=== PATIENT | male | born 1960 | race Caucasian/White ===

== ENCOUNTER 2018-07-15 14:49 | Observation (INO) ==
[2018-07-15] MEDS ORDERED: 0.9 % Sodium Chloride 1,000 ML IVC ONE ×2 (14:53→15:04)
--- NOTE | 2018-07-15 14:53 | Emergency Department Note ---
Disposition Clinical Impression: UTI (urinary tract infection), Dehydration, Orthostatic hypotension Disposition: Admitted As Inpatient Condition: Fair Time of Disposition: 16:43 Weakness HPI - General Chief complaint: ED Weakness Stated complaint: dehydration,weakness Time Seen by Provider: 07/15/18 14:52 Source: patient Mode of arrival: ambulatory Limitations: no limitations Nursing Notes Reviewed: Yes Vital Signs Reviewed: Yes - History of Present Illness HPI Narrative: 58-year-old gentleman who presents today with his daughter complaining of weakness generally. He has for the last 2-3 weeks had a decreased intake. They state that they start Celexa and Remeron about that time. They state that this murmur on scene to make his legs swell CVA stopped that but continue the Celexa. He is continuing to have decreased oral intake. Family is concerned that he may have lost 20 pounds in last couple weeks. He describes pain in his rectum from the reversal of his colostomy but no other pain or nausea. Pt Subjective Complaint: generalized weakness/fatigue - Related Data Home Medications Medication Instructions Recorded Confirmed Pravastatin Sodium [Pravachol] 20 mg PO HS 11/27/14 06/25/18 Fluticasone Propionate [Flovent 2 puff IH BID 08/09/15 06/25/18 Diskus] Ferrous Sulfate [Iron] 325 mg PO BID 08/22/16 06/25/18 Clopidogrel [Plavix] 75 mg PO DAILY 02/21/17 06/25/18 Tamsulosin [Flomax] 0.4 mg PO BID 12/04/17 06/25/18 Citalopram [CeleXA] 20 mg PO HS 06/06/18 06/25/18 Cyanocobalamin (B-12) [Vitamin B12] 1,000 mcg PO DAILY 06/25/18 06/25/18 LORazepam [Ativan] 1 mg PO DAILY 06/25/18 06/25/18 Previous Rx's Medication Instructions Recorded Rivaroxaban [Xarelto] 15 mg PO DAILY #90 tablet 08/31/17 Folic Acid 1 mg PO DAILY #90 tablet 10/27/17 Gabapentin [Neurontin] 300 mg PO TID #90 capsule 11/07/17 Cholecalciferol (Vitamin D3) 1,000 unit PO DAILY #30 capsule 11/23/17 [Vitamin D3] Oxycodone HCl/Acetaminophen 1 each PO Q6H PRN 30 Days #120 01/23/18 [Percocet 5-325 mg Tablet] tablet Loperamide [Imodium] 2 cap PO AD #60 capsule 07/13/18 Allergies Allergy/AdvReac Type Severity Reaction Status Date / Time No Known Allergies Allergy Verified 06/25/18 12:57 Review of Systems: All other systems are negative except as noted/marked Chart generated with voice recognition software Nursing notes reviewed Old records reviewed Past Medical History - Past Medical History Attestation: Yes The following information was validated with the patient. Source: patient, old records reviewed, nursing notes reviewed Medical history: Reports: asthma, cancer, COPD, coronary artery disease, hyperlipidemia, hypertension, peripheral artery disease, other Surgical history: Reports: colectomy, colostomy Psychiatric history: Reports: anxiety, depression - Social History Smoking Status: Current every day smoker Smokeless Tobacco Status: No Alcohol use: Reports: occasionally (heavy EtOh use for years, 6-8 beers daily) Drug use: Reports: none Physical Exam General: NAD, VSS Head: normocephalic, atraumatic Eyes: EOMI, PERRLA mouth: moist mucous membranes Neck: NO CLA, Supple Chest wall: normal rise, no crepitus, no deformity noted Lungs: moving air well, no distress Heart: RRR, Abd: soft, nontender, BS normal : deferred MSK: strength equal in all four extremities Ext: moves all four extremities, no obvious deformities Skin: cap refill normal, warm, dry neuro : CN2-12 grossly intact, A&Ox3 Psych: normal affect, not anxious Course Vital Signs Temperature 98.4 F 07/15/18 14:52 Pulse Rate 90 07/15/18 14:52 Respiratory Rate 18 07/15/18 14:52 Blood Pressure 116/70 07/15/18 14:52 O2 Sat by Pulse Oximetry 97 07/15/18 14:52 Temperature 98.4 F 07/15/18 14:52 Pulse Rate 91 07/15/18 17:00 Respiratory Rate 18 07/15/18 16:30 Blood Pressure 95/63 07/15/18 17:00 O2 Sat by Pulse Oximetry 98 07/15/18 16:30 Oxygen Delivery Oxygen Delivery Room Air Weakness - MDM Narrative Medical decision making narrative: 58-year-old gentleman who presents today with orthostatic with a UTI. He is feeling better after IV fluids however I think he needs to monitored overnight as he was quite symptomatically stood. Patient is comfortable with staying. It becomes Rocephin for his UTI. I spoke with Dr. Gomez he agreed to accept the patient to the floor. repeat orthostatics still positive. - Medical Records Medical records reviewed: Yes I reviewed the patient's medical records. - Lab Data Lab results reviewed: Yes I reviewed the patient's lab results. Result diagrams: 07/15/18 15:08 07/15/18 15:08 Lab Results 07/15/18 07/15/18 07/15/18 Range/Units 15:08 15:08 15:08 WBC 5.0 (4.3-11.1) K/mcL RBC 4.02 L (4.19-5.50) M/mcL Hgb 13.3 (12.9-16.9) g/dL Hct 39.3 (37.5-50.1) % MCV 97.8 (83.0-100.0) fL MCH 33.1 (28.0-33.3) pg MCHC 33.8 (31.6-35.5) g/dL RDW 15.3 H (11.5-14.5) % Plt Count 242 (140-400) K/mcL MPV 9.6 (9.4-12.4) fL Immature Gran % 0.4 (0-4) % Seg Neutrophils % 72.3 % Lymphocytes % 13.9 % Monocytes % 11.6 % Eosinophils % 1.4 % Basophils % 0.4 % Neutrophils # 3.6 (1.6-8.9) K/mcL Lymphocytes # 0.7 (0.6-4.6) K/mcL Monocytes # 0.6 (0.0-1.3) K/mcL Eosinophils # 0.1 (0.0-0.6) K/mcL Basophils # 0.0 (0.0-0.2) K/mcL Sodium 136 (136-145) mEq/L Potassium 3.5 (3.5-5.1) mEq/L Chloride 103 (98-107) mEq/L Carbon Dioxide 27 (23-29) mEq/L BUN 10 (6-20) mg/dL Creatinine 0.84 (0.70-1.30) mg/dL Est GFR ( Amer) > 60 (> 60) Est GFR (Non-Af Amer) > 60 (> 60) BUN/Creatinine Ratio 12 (6-26) Glucose 112 H (70-105) mg/dL Calculated Osmolality 282 (280-300) Lactic Acid 1.7 (0.5-2.2) mmol/L Calcium 8.6 (8.6-10.3) mg/dL Magnesium 1.8 (1.6-2.6) mg/dL Troponin I < 0.03 (< 0.04) ng/mL Urine Color (Yellow) Urine Clarity (Clear) Urine pH (5.0-8.0) pH Units Ur Specific [place] (1.010-1.025) Urine Protein (Neg-Trace) mg/dL Urine Glucose (UA) (Normal) mg/dL Urine Ketones (Negative) mg/dL Urine Blood (Negative) Urine Nitrite (Negative) Urine Bilirubin (Negative) Urine Urobilinogen (Normal) mg/dL Ur Leukocyte Esterase (Negative) Urine Microscopic RBC (0-3) per hpf Urine Microscopic WBC (0-3) per hpf Ur Squamous Epith Cells (None-Few) per lpf Urine Bacteria (None-Few) per hpf Urine Mucus (Few) Ur Culture Indicated? (NO) 07/15/18 Range/Units 16:13 WBC (4.3-11.1) K/mcL RBC (4.19-5.50) M/mcL Hgb (12.9-16.9) g/dL Hct (37.5-50.1) % MCV (83.0-100.0) fL MCH (28.0-33.3) pg MCHC (31.6-35.5) g/dL RDW (11.5-14.5) % Plt Count (140-400) K/mcL MPV (9.4-12.4) fL Immature Gran % (0-4) % Seg Neutrophils % % Lymphocytes % % Monocytes % % Eosinophils % % Basophils % % Neutrophils # (1.6-8.9) K/mcL Lymphocytes # (0.6-4.6) K/mcL Monocytes # (0.0-1.3) K/mcL Eosinophils # (0.0-0.6) K/mcL Basophils # (0.0-0.2) K/mcL Sodium (136-145) mEq/L Potassium (3.5-5.1) mEq/L Chloride (98-107) mEq/L Carbon Dioxide (23-29) mEq/L BUN (6-20) mg/dL Creatinine (0.70-1.30) mg/dL Est GFR ( Amer) (> 60) Est GFR (Non-Af Amer) (> 60) BUN/Creatinine Ratio (6-26) Glucose (70-105) mg/dL Calculated Osmolality (280-300) Lactic Acid (0.5-2.2) mmol/L Calcium (8.6-10.3) mg/dL Magnesium (1.6-2.6) mg/dL Troponin I (< 0.04) ng/mL Urine Color Yellow (Yellow) Urine Clarity Cloudy A (Clear) Urine pH 5.5 (5.0-8.0) pH Units Ur Specific [place] 1.020 (1.010-1.025) Urine Protein 30 H (Neg-Trace) mg/dL Urine Glucose (UA) Normal (Normal) mg/dL Urine Ketones Trace H (Negative) mg/dL Urine Blood Moderate H (Negative) Urine Nitrite Positive A (Negative) Urine Bilirubin Negative (Negative) Urine Urobilinogen Normal (Normal) mg/dL Ur Leukocyte Esterase Moderate H (Negative) Urine Microscopic RBC 5-15 H (0-3) per hpf Urine Microscopic WBC TNTC H (0-3) per hpf Ur Squamous Epith Cells Few (None-Few) per lpf Urine Bacteria Many H (None-Few) per hpf Urine Mucus Few (Few) Ur Culture Indicated? YES A (NO) - Radiology Data Radiology results reviewed: Yes I reviewed the patient's radiology results. EXAMINATION: CT OF THE HEAD WITHOUT CONTRAST; CT OF THE CERVICAL SPINE WITHOUT CONTRAST 07/15/2018 4:02 pm; 07/15/2018 4:00 pm TECHNIQUE: CT of the head was performed without the administration of intravenous contrast. Dose modulation, iterative reconstruction, and/or weight based adjustment of the mA/kV was utilized to reduce the radiation dose to as low as reasonably achievable.; CT of the cervical spine was performed without the administration of intravenous contrast. Multiplanar reformatted images are provided for review. Dose modulation, iterative reconstruction, and/or weight based adjustment of the mA/kV was utilized to reduce the radiation dose to as low as reasonably achievable. COMPARISON: None. HISTORY: ORDERING SYSTEM PROVIDED HISTORY: fall, chi FINDINGS: CT head: BRAIN/VENTRICLES: There is no acute intracranial hemorrhage, mass effect or midline shift. No abnormal extra-axial fluid collection. The zacarias-white differentiation is maintained without evidence of an acute infarct. There is no evidence of hydrocephalus. Mild chronic white matter microvascular ischemic changes are characterized by periventricular white matter hypodensity. ORBITS: The visualized portion of the orbits demonstrate no acute abnormality. SINUSES: The visualized paranasal sinuses and mastoid air cells demonstrate no acute abnormality. SOFT TISSUES/SKULL: No acute abnormality of the visualized skull or soft tissues. CT cervical spine: No fracture or traumatic subluxation is identified. Degenerative changes of the spine are noted, worst at C5-C6 where there is moderate right and moderate to severe left-sided osseous neural foraminal stenosis. 2 mm anterolisthesis of C4 on C5 is likely degenerative in origin. There is an incidentally noted 15 mm subcutaneous fluid collection along the posterior aspect of the neck on image number 49 of the sagittal series, likely a sebaceous cyst CT/CT head/brain wo con IMPRESSION: No acute intracranial abnormality. No cervical fracture detected. Incidental findings as detailed above. D/ / Zac Silva MD / Zac Silva MD Interpreting Provider: Zac Silva MD INATION: SINGLE XRAY VIEW OF THE CHEST 07/15/2018 4:02 pm COMPARISON: 06/19/2013 HISTORY: ORDERING SYSTEM PROVIDED HISTORY: weakness Acute weakness, dehydration. FINDINGS: Study limited by overlying support and monitoring apparatus. Lungs are hyperexpanded with emphysematous changes again noted with an upper lung zone predominance. The heart and mediastinal contours are stable. The lungs are grossly clear. Osseous structures are unremarkable. XR/XR chest 1V portable IMPRESSION: Hyperexpansion of the lungs, emphysema. No focal consolidation. D/ / 07/15/2018 16:09:25 Gabriel Almanza MD / [facility] Interpreting Provider: Gabriel Almanza MD - EKG Data EKG attestation: Yes I reviewed and interpreted this EKG. EKG results narrative: EKG interpreted by myself as a sinus rhythm with rate 94 QTc of [address] elevation
[2018-07-15 15:17] LABS: Basophils % 0.4 %; Eosinophils # 0.1 K/mcL (0.0-0.6); Eosinophils % 1.4 %; Hematocrit 39.3 % (37.5-50.1); Hemoglobin 13.3 g/dL (12.9-16.9); Immature Granulocytes % 0.4 % (0-4); Lymphocytes # 0.7 K/mcL (0.6-4.6); Lymphocytes % 13.9 %; Mean Corpuscular HGB Conc 33.8 g/dL (31.6-35.5); Mean Corpuscular Hemoglobin 33.1 pg (28.0-33.3); Mean Corpuscular Volume 97.8 fL (83.0-100.0); Mean Platelet Volume 9.6 fL (9.4-12.4); Monocytes # 0.6 K/mcL (0.0-1.3); Monocytes % 11.6 %; Neutrophils # 3.6 K/mcL (1.6-8.9); Platelet Count 242 K/mcL (140-400); Red Blood Count 4.02 M/mcL (4.19-5.50); Red Cell Distribution Width 15.3 % (11.5-14.5); Segmented Neutrophils % 72.3 %
[2018-07-15 15:38] LABS: BUN/Creatinine Ratio 12 (6-26); Blood Urea Nitrogen 10 mg/dL (6-20); Calcium 8.6 mg/dL (8.6-10.3); Carbon Dioxide 27 mEq/L (23-29); Chloride 103 mEq/L (98-107); Glucose 112 mg/dL (70-105); Magnesium 1.8 mg/dL (1.6-2.6); Osmolality,Calculated 282 (280-300); Potassium 3.5 mEq/L (3.5-5.1); Sodium 136 mEq/L (136-145); eGFR For Non-African Americans > 60 (> 60)
[2018-07-15 15:39] LABS: Troponin I < 0.03 ng/mL (< 0.04)
[2018-07-15 16:21] LABS: Bilirubin,Urine Negative (Negative); Blood,Urine Moderate (Negative); Clarity,Urine Cloudy (Clear); Color,Urine Yellow (Yellow); Glucose,Urine (UA) Normal (Normal); Ketones,Urine Trace mg/dL (Negative); Leukocyte Esterase,Urine Moderate (Negative); Nitrite,Urine Positive (Negative); PH,Urine 5.5 pH Units (5.0-8.0); Protein,Urine 30 mg/dL (Neg-Trace); Urobilinogen,Urine Normal (Normal)
[2018-07-15] MEDS ORDERED: cefTRIAXone 1,000 MG in Water for inj. (sterile) 20 ML 10 ML IVP ONE (16:35)
[2018-07-15 16:41] LABS: Bacteria,Urine Many per hpf (None-Few); Squamous Epithelial Cell,Urine Few per lpf (None-Few); WBC,Urine TNTC per hpf (0-3)
[2018-07-15 16:42] LABS: Mucus,Urine Few (Few)
[2018-07-15] MEDS ORDERED: Naloxone 0.4 MG/ML INJ IVP PRN ×2 (17:28)
[2018-07-15] MEDS ORDERED: *HR* Morphine 2 MG/ML SYRINGE IVP PRN (17:28)
[2018-07-15] MEDS ORDERED: Acetaminophen 325 MG TABLET PO PRN (17:28)
[2018-07-15] MEDS ORDERED: MOM Conc 10 ML UD.LIQ PO PRN (17:28)
[2018-07-15] MEDS ORDERED: Ondansetron 4 MG/2 ML VIAL IVP PRN (17:28)
[2018-07-15] MEDS ORDERED: Mag Hydrox/Al Hydrox/Simeth 30 ML UDC PO PRN (17:28)
[2018-07-15] MEDS: 0.9 % Sodium Chloride 1,000 ML IVC SCH (18:45)
[2018-07-15] MEDS: Gabapentin 300 MG CAPSULE PO SCH (20:55)
[2018-07-15] MEDS: MOMETASONE FUROATE 100 mcg Inhaler IH SCH (21:49)
[2018-07-16] MEDS: 0.9 % Sodium Chloride 1,000 ML IVC SCH (02:39)
[2018-07-16 06:52] LABS: Basophils % 0.5 %; Eosinophils # 0.1 K/mcL (0.0-0.6); Eosinophils % 1.3 %; Hematocrit 34.7 % (37.5-50.1); Hemoglobin 11.2 g/dL (12.9-16.9); Immature Granulocytes % 0.3 % (0-4); Lymphocytes # 0.5 K/mcL (0.6-4.6); Lymphocytes % 13.6 %; Mean Corpuscular HGB Conc 32.3 g/dL (31.6-35.5); Mean Corpuscular Hemoglobin 32.3 pg (28.0-33.3); Mean Platelet Volume 10.2 fL (9.4-12.4); Monocytes # 0.4 K/mcL (0.0-1.3); Monocytes % 9.6 %; Platelet Count 206 K/mcL (140-400); Red Blood Count 3.47 M/mcL (4.19-5.50); Red Cell Distribution Width 15.3 % (11.5-14.5); Segmented Neutrophils % 74.7 %
[2018-07-16 07:17] LABS: BUN/Creatinine Ratio 12 (6-26); Blood Urea Nitrogen 7 mg/dL (6-20); Calcium 7.6 mg/dL (8.6-10.3); Carbon Dioxide 24 mEq/L (23-29); Chloride 106 mEq/L (98-107); Glucose 84 mg/dL (70-105); Magnesium 1.6 mg/dL (1.6-2.6); Osmolality,Calculated 281 (280-300); Potassium 3.4 mEq/L (3.5-5.1); Sodium 137 mEq/L (136-145); eGFR For Non-African Americans > 60 (> 60)
[2018-07-16] MEDS: *HR* LORazepam 1 MG TABLET PO SCH (08:46)
[2018-07-16] MEDS: *HR* Rivaroxaban 15 MG TABLET PO SCH (08:46)
[2018-07-16] MEDS: Gabapentin 300 MG CAPSULE PO SCH ×3 (08:46→20:37)
[2018-07-16] MEDS: MOMETASONE FUROATE 100 mcg Inhaler IH SCH ×2 (10:13→21:43)
--- NOTE | 2018-07-16 14:59 | Internal Med History&Physical ---
Date of Encounter: 07/16/18 Time of Encounter: 14:15 Assessment and Plan (1) UTI (urinary tract infection) Current visit: Yes Status: Acute He has been started empirically on Rocephin IV. Lactobacillus will be added. Qualifiers: Urinary tract infection type: site unspecified Hematuria presence: with hematuria Qualified Code(s): N39.0 - Urinary tract infection, site not specified; R31.9 - Hematuria, unspecified (2) Hypokalemia Current visit: Yes Status: Acute Potassium level has decreased to 3.4. Supplemental potassium will be given. (3) Hypocalcemia Current visit: Yes Status: Acute Calcium level has decreased to 7.6. Repeat labs will be done in a.m. PTH has been ordered. (4) COPD (chronic obstructive pulmonary disease) Current visit: Yes Status: Chronic Room air oximetry will be checked on 6 minute walk prior to discharge. Qualifiers: COPD type: unspecified COPD Qualified Code(s): J44.9 - Chronic obstructive pulmonary disease, unspecified (5) Dvt femoral (deep venous thrombosis) Current visit: No Status: Chronic Continue Xarelto indefinitely. Qualifiers: Chronicity: unspecified Laterality: bilateral Qualified Code(s): I82.413 - Acute embolism and thrombosis of femoral vein, bilateral (6) Anemia Current visit: No Status: Acute Anemia testing will be ordered. Qualifiers: Anemia type: unspecified type Qualified Code(s): D64.9 - Anemia, unspecified (7) Weakness Current visit: Yes Status: Acute Reassess in a.m. He may need PT and OT evaluations. Internal Medicine - H&P: HPI Chief complaint: Weakness, UTI Admitted From: Emergency Dept Plans for Post Hospital Care: Home History of present illness: Mr. Du is a 58 year old male came to emergency room stating he had 3-4 week history of progressive weakness in his arms and legs. He reports falling without injury at home on 2 occasions last week. He was evaluated in emergency room and was found to have UTI. He was admitted to [facility] floor for ongoing care needs. history is pertinent for having bilateral hydronephrosis with bladder biopsy, bladder wall fulguration, bilateral retrograde pyelograms, and bilateral diagnostic ureteroscopy on 06/25/[address] Pa. Pathology report did not show evidence of malignancy. He denies other disorders of his kidney bladder or prostate. Past Med Surg Social Fam HX - Past Medical History Medical history: asthma, cancer, COPD, coronary artery disease, hyperlipidemia, hypertension, peripheral artery disease, other Additional medical history: colon cancer,allergi rhinitis,vitamin D deficiency, Psychiatric history: anxiety, depression - Past Surgical History Surgical History: colectomy, colostomy Additional surgical history: Colostomy reversed September 2017 - Social History Smoking Status: Current every day smoker Smokeless Tobacco Status: No Alcohol use: occasionally Drug use: none Internal Medicine - H&P: Meds Pravastatin Sodium [Pravachol] 20 mg PO HS 11/27/14 [History] Fluticasone Propionate [Flovent Diskus] 2 puff IH BID 08/09/15 [History] Ferrous Sulfate [Iron] 325 mg PO BID 08/22/16 [History] Clopidogrel [Plavix] 75 mg PO DAILY 02/21/17 [History] Rivaroxaban [Xarelto] 15 mg PO DAILY #90 tablet 08/31/17 [Rx] Folic Acid 1 mg PO DAILY #90 tablet 10/27/17 [Rx] Gabapentin [Neurontin] 300 mg PO TID #90 capsule 11/07/17 [Rx] Cholecalciferol (Vitamin D3) [Vitamin D3] 1,000 unit PO DAILY #30 capsule 11/23/17 [Rx] Tamsulosin [Flomax] 0.4 mg PO BID 12/04/17 [History] Oxycodone HCl/Acetaminophen [Percocet 5-325 mg Tablet] 1 each PO Q6H PRN 30 Days #120 tablet 01/23/18 [Rx] Citalopram [CeleXA] 20 mg PO HS 06/06/18 [History] Cyanocobalamin (B-12) [Vitamin B12] 1,000 mcg PO DAILY 06/25/18 [History] LORazepam [Ativan] 1 mg PO DAILY 06/25/18 [History] Loperamide [Imodium] 2 cap PO AD #60 capsule 07/13/18 [Rx] Allergy/AdvReac Type Severity Reaction Status Date / Time No Known Allergies Allergy Verified 06/25/18 12:57 All Systems PM: A 10-system review of systems was performed and is negative for pertinent findings except as documented above in the HPI. Review of systems: Gen.: He states his weight has decreased 10-15 pounds in the past year, unintentionally Cardiovascular: He denies hypertension [place] or heart failure. Regadenoson EST 08/12/2015 showed EKG and perfusion imaging negative for ischemia. The LVEF was 69%. He had bilateral leg DVT diagnosed January 2015 and has IVC filter in place. He is also on Xarelto. Respiratory: He smoked since age 5 up to 3 packs per day. He had PFTs 05/30/2017 which showed FVC 87% predicted, FEV1 66% productive, FEV1/FVC 58%, MVV 53% predicted, and DLCO (corrected) 44% predicted. He was diagnosed with m oderate obstructive lung disease. He does not use home oxygen. 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 Patient does not know details about this. GI: He denies disorders of his liver gallbladder or exocrine pancreas. He had stage II rectal adenocarcinoma diagnosed 09/07/2014. He had segmental colon resection with development of colostomy. The colostomy was reversed several months ago. He has had chemotherapy and radiation therapy and is presumed cancer free. He follows regularly with [facility] oncologists. : Per history of present illness Neurologic: He denies large distribution strokes or seizures. Endocrine: He has history of hyperlipidemia but denies diabetes or thyroid disease Hematology/oncology: He had lung and rectal cancer diagnoses as per above. He states he is presumed cancer free. He was unaware he had anemia on labs this morning. He denies other blood disorders or internal malignancies. Psychiatric: He has depression and anxiety but denies other mental health issues. [place] skeletal: He denies arthritis gout or other bone joint or muscle disorders. - Constitutional Vitals: Temp Pulse Resp BP Pulse Ox 98.3 F 60 18 126/60 97 07/16/18 11:00 07/16/18 11:00 07/16/18 11:00 07/16/18 11:00 07/16/18 11:00 Exam: Gen.: He is well-developed lean male lying in bed who appears in no acute distress HEENT: Head is atraumatic and normocephalic. Eyes: EOMI. There is no scleral icterus. Mouth: Mucosa is moist. Neck: Supple and nontender. There is no thyromegaly or adenopathy noted. Heart: Regular without murmurs gallops or ectopics Lungs: No wheezes or crackles are heard. Abdomen: Soft and nontender. No masses or guarding are noted. He has well- healed lower midline abdominal incision from previous colon surgeries. There is a right lower quadrant scar from previous colostomy site. Extremities: There is no cyanosis edema or clubbing noted. Dorsalis pedis and posterior tibial pulses are trace to 1+ palpable bilaterally. 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 Neurologic: Mental status: He is talkative and a good historian. Cranial nerves: Smile is symmetric. Forehead wrinkles bilaterally. Tongue protrudes midline. EOMI. Motor: There is no pronator drift. Cerebellar: Finger to nose is intact bilaterally. Skin: Warm and dry Internal Med - H&P Results - Labs CBC & Chem 7: 07/16/18 04:45 07/16/18 04:45 Labs: Short CBC 07/15/18 07/16/18 Range/Units 15:08 04:45 WBC 5.0 4.0 L (4.3-11.1) K/mcL Hgb 13.3 11.2 L D (12.9-16.9) g/dL Hct 39.3 34.7 L (37.5-50.1) % Plt Count 242 206 (140-400) K/mcL Neutrophils # 3.6 3.0 (1.6-8.9) K/mcL BMP 07/15/18 07/16/18 15:08 04:45 Sodium 136 137 Potassium 3.5 3.4 L Chloride 103 106 Carbon Dioxide 27 24 BUN 10 7 Creatinine 0.84 0.57 L Glucose 112 H 84 Calcium 8.6 7.6 L Cardiac Enzymes 07/15/18 Range/Units 15:08 Troponin I < 0.03 (< 0.04) ng/mL Urine 07/15/18 Range/Units 16:13 Urine Color Yellow (Yellow) Urine Clarity Cloudy A (Clear) Urine pH 5.5 (5.0-8.0) pH Units Ur Specific [place] 1.020 (1.010-1.025) Urine Protein 30 H (Neg-Trace) mg/dL Urine Glucose (UA) Normal (Normal) mg/dL - Impressions ITS Impressions Chest X-Ray 07/15/18 14:53 IMPRESSION: Hyperexpansion of the lungs, emphysema. No focal consolidation. D/ / 07/15/2018 16:09:25 Gabriel Almanza MD / [facility] Interpreting Provider: Gabriel Almanza MD Cervical Spine CT 07/15/18 14:54 IMPRESSION: No acute intracranial abnormality. No cervical fracture detected. Incidental findings as detailed above. D/ / Zac Silva MD / Zac Silva MD Interpreting Provider: Zac Silva MD Head CT 07/15/18 14:54
[2018-07-16 17:34] LABS: % Iron Saturation 7 % (20-55); Iron 16 mcg/dL (65-175); Transferrin 172 mg/dL (203-362)
[2018-07-16 17:47] LABS: Ferritin 94 ng/mL (20-250)
[2018-07-16 17:53] LABS: Folate > 22.3 ng/mL (3.0-16.0); Vitamin B12 687 pg/mL (250-1100)
[2018-07-17 05:33] LABS: Basophils % 0.3 %; Eosinophils # 0.1 K/mcL (0.0-0.6); Eosinophils % 1.5 %; Hemoglobin 12.2 g/dL (12.9-16.9); Immature Granulocytes % 0.3 % (0-4); Lymphocytes % 19.6 %; Mean Corpuscular Hemoglobin 32.3 pg (28.0-33.3); Mean Corpuscular Volume 97.9 fL (83.0-100.0); Mean Platelet Volume 9.2 fL (9.4-12.4); Monocytes # 0.5 K/mcL (0.0-1.3); Monocytes % 14.7 %; Neutrophils # 2.1 K/mcL (1.6-8.9); Platelet Count 205 K/mcL (140-400); Red Blood Count 3.78 M/mcL (4.19-5.50); Segmented Neutrophils % 63.6 %
[2018-07-17 06:00] LABS: Alanine Aminotransferase 8 Units/L (7-52); Albumin 2.4 g/dL (3.5-5.7); Albumin/Globulin Ratio 0.8 (1.1-2.2); Alkaline Phosphatase 52 Units/L (34-104); Aspartate Amino Transferase 5 Units/L (13-39); BUN/Creatinine Ratio 8 (6-26); Bilirubin,Total 0.4 mg/dL (0.3-1.0); Blood Urea Nitrogen 5 mg/dL (6-20); Carbon Dioxide 26 mEq/L (23-29); Chloride 105 mEq/L (98-107); Chol/HDL Ratio 2.7 (0-4.9); Cholesterol 108 mg/dL (< 200); Glucose 115 mg/dL (70-105); HDL Cholesterol 40 mg/dL (40-59); LDL Cholesterol,Calculated 51 mg/dL (0-99); Osmolality,Calculated 280 (280-300); Potassium 3.6 mEq/L (3.5-5.1); Sodium 136 mEq/L (136-145); Total Protein 5.4 g/dL (6.4-8.9); Triglycerides 84 mg/dL (< 150); eGFR For Non-African Americans > 60 (> 60)
[2018-07-17 06:05] LABS: Lymphocytes # 0.7 K/mcL (0.6-4.6)
[2018-07-17] MEDS: Ascorbic Acid 500 MG TABLET PO SCH (06:26)
[2018-07-17 06:27] LABS: Thyroid Stimulating Hormone 2.391 mcIU/mL (0.340-5.600)
[2018-07-17] MEDS: Gabapentin 300 MG CAPSULE PO SCH ×3 (09:04→20:27)
[2018-07-17] MEDS: Cholecalciferol (D-3) 1,000 UNIT TABLET PO SCH (09:04)
[2018-07-17] MEDS: *HR* Rivaroxaban 15 MG TABLET PO SCH (09:04)
[2018-07-17] MEDS: *HR* LORazepam 1 MG TABLET PO SCH (09:05)
[2018-07-17] MEDS: *HR* OxyCODONE/APAP 5/325 TABLET PO PRN (09:11)
[2018-07-17] MEDS: MOMETASONE FUROATE 100 mcg Inhaler IH SCH ×2 (10:25→21:18)
--- NOTE | 2018-07-17 11:31 | Internal Med Progress Note ---
Date of Encounter: 07/17/18 Time of Encounter: 11:25 - Assessment and plan (1) UTI (urinary tract infection) Current Visit: Yes Status: Acute Assessment and plan: July 17. Urine culture shows mixed organisms. Discontinue Rocephin and lactobacillus. Qualifiers: Urinary tract infection type: site unspecified Hematuria presence: with hematuria Qualified Code(s): N39.0 - Urinary tract infection, site not specified; R31.9 - Hematuria, unspecified (2) Hypokalemia Current Visit: Yes Status: Acute Assessment and plan: July 17. Potassium normalized to 3.6. Continue potassium supplement and monitor labs. (3) Hypocalcemia Current Visit: Yes Status: Acute Assessment and plan: July 17. Calcium level corrected for albumin is 9.2. PTH normal. Continue to monitor. (4) COPD (chronic obstructive pulmonary disease) Current Visit: Yes Status: Chronic Assessment and plan: July 17. Continue present treatment. Room air oximetry will be checked. 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 Continue Xarelto indefinitely Qualifiers: Chronicity: unspecified Laterality: bilateral Qualified Code(s): I82.413 - Acute embolism and thrombosis of femoral vein, bilateral (6) Anemia Current Visit: No Status: Acute Assessment and plan: July 17. Anemia testing showed iron 16, transferrin saturation 7%, transferrin 172, ferritin 94, B12 687, and folate > 22.3. Hemoglobin has improved to 12.2. Continue ferrous sulfate with ascorbic acid. Qualifiers: Anemia type: unspecified type Qualified Code(s): D64.9 - Anemia, unspecified (7) Weakness Current Visit: Yes Status: Acute Assessment and plan: July 17. PT and OT evaluations will be ordered. - Subjective Interval history: July 17. He has no new complaints. His granddaughter states he was ambulating with a walker 2-3 days prior to admission. Within 48 hours he was too weak to ambulate and had falls that led to emergency room visit and hospitalization. Patient states he still feels too week to get out of bed. - Constitutional Vitals: Temp Pulse Resp BP Pulse Ox 97.3 F L 78 16 116/72 92 07/17/18 06:45 07/17/18 06:45 07/17/18 10:25 07/17/18 06:45 07/17/18 10:25 Exam: He is resting in bed and appears in no acute distress. He is able to move his legs in bed. His affect is overall cheerful. I reviewed his medications and lab results. Internal Medicine: Result - Labs CBC & Chem 7: 07/17/18 04:45 07/17/18 04:45 Labs: Short CBC 07/17/18 Range/Units 04:45 WBC 3.3 L (4.3-11.1) K/mcL Hgb 12.2 L (12.9-16.9) g/dL Hct 37.0 L (37.5-50.1) % Plt Count 205 (140-400) K/mcL Neutrophils # 2.1 (1.6-8.9) K/mcL BMP 07/17/18 04:45 Sodium 136 Potassium 3.6 Chloride 105 Carbon Dioxide 26 BUN 5 L Creatinine 0.65 L Glucose 115 H Calcium 8.0 L Liver Function 07/17/18 Range/Units 04:45 Total Bilirubin 0.4 (0.3-1.0) mg/dL AST 5 L (13-39) Units/L ALT 8 (7-52) Units/L Alkaline Phosphatase 52 (34-104) Units/L Albumin 2.4 L (3.5-5.7) g/dL Consult Discharge Plan - Plan Referrals: Staci Mcdermott MD [Primary Care Provider] - 1 week
[2018-07-17] MEDS: *HR* HYDROcodone/Acet 5/325 mg TABLET PO PRN (20:31)
--- NOTE | 2018-07-17 21:32 | Electrocardiograph Report ---
[place] [id number] Test Date: 2018-07-15 Pat Name: Lamont Du Department: EDP-12 Room: [facility] Gender: M Roll Bucker: : 1960 Requested By: Sofie Lipscomb Order Number: [id number] Reading MD: Barby Grande Measurements Intervals [place] Rate: 94 P: 86 MT: 133 QRS: 96 QRSD: 92 T: 82 QT: 362 QTc: 453 Interpretive Statements Sinus rhythm Borderline right axis deviation Electronically Signed On 07-17-2018 21:30:33 EDT by Barby Grande
[2018-07-18] MEDS: Ascorbic Acid 500 MG TABLET PO SCH (06:02)
[2018-07-18 06:18] LABS: Basophils % 0.2 %; Eosinophils # 0.1 K/mcL (0.0-0.6); Eosinophils % 1.8 %; Hematocrit 35.8 % (37.5-50.1); Immature Granulocytes % 0.4 % (0-4); Lymphocytes # 0.5 K/mcL (0.6-4.6); Lymphocytes % 10.2 %; Mean Corpuscular HGB Conc 33.5 g/dL (31.6-35.5); Mean Corpuscular Hemoglobin 32.5 pg (28.0-33.3); Mean Platelet Volume 9.2 fL (9.4-12.4); Monocytes # 0.5 K/mcL (0.0-1.3); Monocytes % 9.4 %; Neutrophils # 3.9 K/mcL (1.6-8.9); Platelet Count 213 K/mcL (140-400); Red Blood Count 3.69 M/mcL (4.19-5.50); Red Cell Distribution Width 14.8 % (11.5-14.5)
[2018-07-18 06:40] LABS: BUN/Creatinine Ratio 11 (6-26); Blood Urea Nitrogen 7 mg/dL (6-20); Calcium 8.3 mg/dL (8.6-10.3); Carbon Dioxide 26 mEq/L (23-29); Chloride 103 mEq/L (98-107); Glucose 106 mg/dL (70-105); Osmolality,Calculated 276 (280-300); Sodium 134 mEq/L (136-145); eGFR For Non-African Americans > 60 (> 60)
[2018-07-18] MEDS: Gabapentin 300 MG CAPSULE PO SCH ×3 (08:22→20:54)
[2018-07-18] MEDS: *HR* Rivaroxaban 15 MG TABLET PO SCH (08:22)
[2018-07-18] MEDS: *HR* LORazepam 1 MG TABLET PO SCH (08:22)
[2018-07-18] MEDS: Cholecalciferol (D-3) 1,000 UNIT TABLET PO SCH (08:22)
[2018-07-18] MEDS: MOMETASONE FUROATE 100 mcg Inhaler IH SCH ×2 (10:34→21:34)
--- NOTE | 2018-07-18 17:10 | Internal Med Progress Note ---
Date of Encounter: 07/18/18 Time of Encounter: 17:02 - Assessment and plan (1) UTI (urinary tract infection) Current Visit: Yes Status: Acute Assessment and plan: July 17. Urine culture shows mixed organisms. Discontinue Rocephin and lactobacillus. Qualifiers: Urinary tract infection type: site unspecified Hematuria presence: with hematuria Qualified Code(s): N39.0 - Urinary tract infection, site not specified; R31.9 - Hematuria, unspecified (2) Hypokalemia Current Visit: Yes Status: Acute Assessment and plan: July 17. Potassium normalized to 3.6. Continue potassium supplement and monitor labs. July 18. Potassium now 4.0. Decrease supplemental potassium to 20 mEq daily. (3) Hypocalcemia Current Visit: Yes Status: Acute Assessment and plan: July 17. Calcium level corrected for albumin is 9.2. PTH normal. Continue to monitor. (4) COPD (chronic obstructive pulmonary disease) Current Visit: Yes Status: Chronic Assessment and plan: July 17. Continue present treatment. Room air oximetry will be checked. 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 Continue Xarelto indefinitely Qualifiers: Chronicity: unspecified Laterality: bilateral Qualified Code(s): I82.413 - Acute embolism and thrombosis of femoral vein, bilateral (6) Anemia Current Visit: No Status: Acute Assessment and plan: July 17. Anemia testing showed iron 16, transferrin saturation 7%, transferrin 172, ferritin 94, B12 687, and folate > 22.3. Hemoglobin has improved to 12.2. Continue ferrous sulfate with ascorbic acid. Qualifiers: Anemia type: unspecified type Qualified Code(s): D64.9 - Anemia, unspecified (7) Weakness Current Visit: Yes Status: Acute Assessment and plan: July 17. PT and OT evaluations will be ordered. July 18. Continue therapy intervention. Anticipate discharge to SNF where his daughter is DON as soon as Medicaid approval received. - Subjective Interval history: July 17. He has no new complaints. His granddaughter states he was ambulating with a walker 2-3 days prior to admission. Within 48 hours he was too weak to ambulate and had falls that led to emergency room visit and hospitalization. Patient states he still feels too week to get out of bed. July 18. He has no new complaints and feels stronger. He states he took several steps with therapist earlier today. - Constitutional Vitals: Temp Pulse Resp BP Pulse Ox 98.7 F 91 17 98/63 94 07/18/18 15:41 07/18/18 15:41 07/18/18 15:41 07/18/18 15:41 07/18/18 15:41 Exam: He is resting comfortably in bed and appears in no acute distress. His affect is bright and cheerful. I reviewed his medications and lab results. Internal Medicine: Result - Labs CBC & Chem 7: 07/18/18 06:12 07/18/18 06:12 Labs: Short CBC 07/18/18 Range/Units 06:12 WBC 5.0 D (4.3-11.1) K/mcL Hgb 12.0 L (12.9-16.9) g/dL Hct 35.8 L (37.5-50.1) % Plt Count 213 (140-400) K/mcL Neutrophils # 3.9 (1.6-8.9) K/mcL BMP 07/18/18 06:12 Sodium 134 L Potassium 4.0 Chloride 103 Carbon Dioxide 26 BUN 7 Creatinine 0.65 L Glucose 106 H Calcium 8.3 L Consult Discharge Plan - Plan Referrals: Staci Mcdermott MD [Primary Care Provider] - 1 week
[2018-07-19] MEDS: Ascorbic Acid 500 MG TABLET PO SCH (05:40)
[2018-07-19] MEDS: Cholecalciferol (D-3) 1,000 UNIT TABLET PO SCH (09:00)
[2018-07-19] MEDS: *HR* Rivaroxaban 15 MG TABLET PO SCH (09:00)
[2018-07-19] MEDS: *HR* LORazepam 1 MG TABLET PO SCH (09:00)
[2018-07-19] MEDS: Gabapentin 300 MG CAPSULE PO SCH ×3 (09:00→19:56)
[2018-07-19] MEDS: MOMETASONE FUROATE 100 mcg Inhaler IH SCH ×2 (09:03→22:16)
--- NOTE | 2018-07-19 16:42 | Internal Med Progress Note ---
Date of Encounter: 07/19/18 Time of Encounter: 16:35 - Assessment and plan (1) UTI (urinary tract infection) Current Visit: Yes Status: Acute Assessment and plan: July 17. Urine culture shows mixed organisms. Discontinue Rocephin and lactobacillus. Qualifiers: Urinary tract infection type: site unspecified Hematuria presence: with hematuria Qualified Code(s): N39.0 - Urinary tract infection, site not specified; R31.9 - Hematuria, unspecified (2) Hypokalemia Current Visit: Yes Status: Acute Assessment and plan: July 17. Potassium normalized to 3.6. Continue potassium supplement and monitor labs. July 18. Potassium now 4.0. Decrease supplemental potassium to 20 mEq daily. July 19. Recheck labs in a.m. (3) Hypocalcemia Current Visit: Yes Status: Acute Assessment and plan: July 17. Calcium level corrected for albumin is 9.2. PTH normal. Continue to monitor. (4) COPD (chronic obstructive pulmonary disease) Current Visit: Yes Status: Chronic Assessment and plan: July 17. Continue present treatment. Room air oximetry will be checked prior to discharge. 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 Continue Xarelto indefinitely Qualifiers: Chronicity: unspecified Laterality: bilateral Qualified Code(s): I82.413 - Acute embolism and thrombosis of femoral vein, bilateral (6) Anemia Current Visit: No Status: Acute Assessment and plan: July 17. Anemia testing showed iron 16, transferrin saturation 7%, transferrin 172, ferritin 94, B12 687, and folate > 22.3. Hemoglobin has improved to 12.2. Continue ferrous sulfate with ascorbic acid. July 19. Recheck labs in a.m. Qualifiers: Anemia type: unspecified type Qualified Code(s): D64.9 - Anemia, un specified (7) Weakness Current Visit: Yes Status: Acute Assessment and plan: July 17. PT and OT evaluations will be ordered. July 18. Continue therapy intervention. Anticipate discharge to SNF where his daughter is DON as soon as Medicaid approval received. - Subjective Interval history: July 17. He has no new complaints. His granddaughter states he was ambulating with a walker 2-3 days prior to admission. Within 48 hours he was too weak to ambulate and had falls that led to emergency room visit and hospitalization. Patient states he still feels too week to get out of bed. July 18. He has no new complaints and feels stronger. He states he took several steps with therapist earlier today. July 19. He has no new complaints. - Constitutional Vitals: Temp Pulse Resp BP Pulse Ox 98.2 F 108 18 103/70 95 07/19/18 14:12 07/19/18 14:12 07/19/18 14:12 07/19/18 14:12 07/19/18 14:12 Exam: He is resting comfortably in bed and appears in no acute distress. His affect is bright and cheerful. I reviewed his medications and lab results. Internal Medicine: Result - Labs CBC & Chem 7: 07/18/18 06:12 07/18/18 06:12 Consult Discharge Plan - Plan Referrals: Staci Mcdermott MD [Primary Care Provider] - 1 week
[2018-07-20] MEDS: Ascorbic Acid 500 MG TABLET PO SCH (05:47)
[2018-07-20] MEDS: Gabapentin 300 MG CAPSULE PO SCH ×3 (08:55→20:51)
[2018-07-20] MEDS: Cholecalciferol (D-3) 1,000 UNIT TABLET PO SCH (08:55)
[2018-07-20] MEDS: *HR* Rivaroxaban 15 MG TABLET PO SCH (08:57)
[2018-07-20] MEDS: *HR* LORazepam 1 MG TABLET PO SCH (08:58)
[2018-07-20] MEDS: MOMETASONE FUROATE 100 mcg Inhaler IH SCH ×2 (09:37→21:01)
--- NOTE | 2018-07-20 16:28 | Internal Med Progress Note ---
Date of Encounter: 07/20/18 Time of Encounter: 16:20 - Assessment and plan (1) UTI (urinary tract infection) Current Visit: Yes Status: Acute Assessment and plan: July 17. Urine culture shows mixed organisms. Discontinue Rocephin and lactobacillus. Qualifiers: Urinary tract infection type: site unspecified Hematuria presence: with hematuria Qualified Code(s): N39.0 - Urinary tract infection, site not specified; R31.9 - Hematuria, unspecified (2) Hypokalemia Current Visit: Yes Status: Acute Assessment and plan: July 17. Potassium normalized to 3.6. Continue potassium supplement and monitor labs. July 18. Potassium now 4.0. Decrease supplemental potassium to 20 mEq daily. July 19. Recheck labs in a.m. July 20. Recheck labs in a.m. (3) Hypocalcemia Current Visit: Yes Status: Acute Assessment and plan: July 17. Calcium level corrected for albumin is 9.2. PTH normal. Continue to monitor. (4) COPD (chronic obstructive pulmonary disease) Current Visit: Yes Status: Chronic Assessment and plan: July 17. Continue present treatment. Room air oximetry will be checked prior to discharge. 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 Continue Xarelto indefinitely Qualifiers: Chronicity: unspecified Laterality: bilateral Qualified Code(s): I82.413 - Acute embolism and thrombosis of femoral vein, bilateral (6) Anemia Current Visit: No Status: Acute Assessment and plan: July 17. Anemia testing showed iron 16, transferrin saturation 7%, transferrin 172, ferritin 94, B12 687, and folate > 22.3. Hemoglobin has improved to 12.2. Continue ferrous sulfate with ascorbic acid. July 19. Recheck labs in a.m. July 20. Recheck labs in a.m. Qualifiers: Anemia type: unspecified type Qualified Code(s): D64.9 - Anemia, unspecified (7) Weakness Current Visit: Yes Status: Acute Assessment and plan: July 17. PT and OT evaluations will be ordered. July 18. Continue therapy intervention. Anticipate discharge to SNF where his daughter is DON as soon as Medicaid approval received. - Subjective Interval history: July 17. He has no new complaints. His granddaughter states he was ambulating with a walker 2-3 days prior to admission. Within 48 hours he was too weak to ambulate and had falls that led to emergency room visit and hospitalization. Patient states he still feels too week to get out of bed. July 18. He has no new complaints and feels stronger. He states he took several steps with therapist earlier today. July 19. He has no new complaints. July 20. He has no new complaints. He states he walked 48 feet today. - Constitutional Vitals: Temp Pulse Resp BP Pulse Ox 98.7 F 96 18 112/73 96 07/20/18 14:28 07/20/18 14:28 07/20/18 14:28 07/20/18 14:28 07/20/18 14:28 Exam: He is resting comfortably in bed and appears in no acute distress. His affect is overall cheerful. I reviewed his medications and past lab results. Internal Medicine: Result - Labs CBC & Chem 7: 07/18/18 06:12 07/18/18 06:12 Consult Discharge Plan - Plan Referrals: Staci Mcdermott MD [Primary Care Provider] - 1 week
[2018-07-21] MEDS: Ascorbic Acid 500 MG TABLET PO SCH (06:18)
[2018-07-21 06:28] LABS: Basophils % 0.4 %; Eosinophils # 0.1 K/mcL (0.0-0.6); Eosinophils % 1.7 %; Hematocrit 38.6 % (37.5-50.1); Hemoglobin 12.5 g/dL (12.9-16.9); Immature Granulocytes % 0.2 % (0-4); Lymphocytes # 0.5 K/mcL (0.6-4.6); Lymphocytes % 10.8 %; Mean Corpuscular HGB Conc 32.4 g/dL (31.6-35.5); Mean Corpuscular Hemoglobin 31.5 pg (28.0-33.3); Mean Corpuscular Volume 97.2 fL (83.0-100.0); Monocytes # 0.8 K/mcL (0.0-1.3); Monocytes % 15.9 %; Neutrophils # 3.3 K/mcL (1.6-8.9); Platelet Count 274 K/mcL (140-400); Red Blood Count 3.97 M/mcL (4.19-5.50); Red Cell Distribution Width 14.4 % (11.5-14.5)
[2018-07-21 06:58] LABS: Alanine Aminotransferase 15 Units/L (7-52); Albumin/Globulin Ratio 0.8 (1.1-2.2); Alkaline Phosphatase 55 Units/L (34-104); Aspartate Amino Transferase 10 Units/L (13-39); BUN/Creatinine Ratio 15 (6-26); Bilirubin,Total 0.4 mg/dL (0.3-1.0); Blood Urea Nitrogen 10 mg/dL (6-20); Calcium 8.8 mg/dL (8.6-10.3); Carbon Dioxide 28 mEq/L (23-29); Chloride 97 mEq/L (98-107); Globulin 3.6 g/dL (2.4-3.5); Glucose 110 mg/dL (70-105); Osmolality,Calculated 274 (280-300); Potassium 3.9 mEq/L (3.5-5.1); Sodium 132 mEq/L (136-145); Total Protein 6.6 g/dL (6.4-8.9); eGFR For Non-African Americans > 60 (> 60)
[2018-07-21] MEDS: *HR* LORazepam 1 MG TABLET PO SCH (08:19)
[2018-07-21] MEDS: *HR* Rivaroxaban 15 MG TABLET PO SCH (08:19)
[2018-07-21] MEDS: Gabapentin 300 MG CAPSULE PO SCH ×3 (08:19→20:58)
[2018-07-21] MEDS: Cholecalciferol (D-3) 1,000 UNIT TABLET PO SCH (08:20)
--- NOTE | 2018-07-21 10:18 | Internal Med Progress Note ---
Date of Encounter: 07/21/18 Time of Encounter: 10:10 - Assessment and plan (1) UTI (urinary tract infection) Current Visit: Yes Status: Acute Assessment and plan: July 17. Urine culture shows mixed organisms. Discontinue Rocephin and lactobacillus. Qualifiers: Urinary tract infection type: site unspecified Hematuria presence: with hematuria Qualified Code(s): N39.0 - Urinary tract infection, site not specified; R31.9 - Hematuria, unspecified (2) Hypokalemia Current Visit: Yes Status: Acute Assessment and plan: July 17. Potassium normalized to 3.6. Continue potassium supplement and monitor labs. July 18. Potassium now 4.0. Decrease supplemental potassium to 20 mEq daily. July 19. Recheck labs in a.m. July 20. Recheck labs in a.m. July 21. Potassium normal at 3.9. Continue present Rx (3) Hypocalcemia Current Visit: Yes Status: Acute Assessment and plan: July 17. Calcium level corrected for albumin is 9.2. PTH normal. Continue to monitor. July 21. Calcium remains normal. Continue Rx (4) COPD (chronic obstructive pulmonary disease) Current Visit: Yes Status: Chronic Assessment and plan: July 17. Continue present treatment. Room air oximetry will be checked prior to discharge. 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 Continue Xarelto indefinitely Qualifiers: Chronicity: unspecified Laterality: bilateral Qualified Code(s): I82.413 - Acute embolism and thrombosis of femoral vein, bilateral (6) Anemia Current Visit: No Status: Acute Assessment and plan: July 17. Anemia testing showed iron 16, transferrin saturation 7%, transferrin 172, ferritin 94, B12 687, and folate > 22.3. Hemoglobin has improved to 12.2. Continue ferrous sulfate with ascorbic acid. July 19. Recheck labs in a.m. July 20. Recheck labs in a.m. July 21. Hemoglobin improved to 12.5. Continue ferrous sulfate with ascorbic acid. Qualifiers: Anemia type: unspecified type Qualified Code(s): D64.9 - Anemia, unspecified (7) Weakness Current Visit: Yes Status: Acute Assessment and plan: July 17. PT and OT evaluations will be ordered. July 18. Continue therapy intervention. Anticipate discharge to SNF where his daughter is DON as soon as Medicaid approval received. July 21. Continue PT/OT. Awaiting Medicaid approval to go to SNF. - Subjective Interval history: July 17. He has no new complaints. His granddaughter states he was ambulating with a walker 2-3 days prior to admission. Within 48 hours he was too weak to ambulate and had falls that led to emergency room visit and hospitalization. Patient states he still feels too week to get out of bed. July 18. He has no new complaints and feels stronger. He states he took several steps with therapist earlier today. July 19. He has no new complaints. July 20. He has no new complaints. He states he walked 48 feet today. July 21. He has no new complaints. - Constitutional Vitals: Temp Pulse Resp BP Pulse Ox 97.8 F 98 21 97/58 98 07/21/18 06:44 07/21/18 08:17 07/21/18 06:44 07/21/18 08:17 07/21/18 08:17 Exam: He is resting comfortably in bed and appears in no acute distress. His affect is bright and cheerful. I reviewed his medications and lab results. Internal Medicine: Result - Labs CBC & Chem 7: 07/21/18 04:57 07/21/18 04:57 Labs: Short CBC 07/21/18 Range/Units 04:57 WBC 4.7 (4.3-11.1) K/mcL Hgb 12.5 L (12.9-16.9) g/dL Hct 38.6 (37.5-50.1) % Plt Count 274 (140-400) K/mcL Neutrophils # 3.3 (1.6-8.9) K/mcL BMP 07/21/18 04:57 Sodium 132 L Potassium 3.9 Chloride 97 L Carbon Dioxide 28 BUN 10 Creatinine 0.68 L Glucose 110 H Calcium 8.8 Liver Function 07/21/18 Range/Units 04:57 Total Bilirubin 0.4 (0.3-1.0) mg/dL AST 10 L (13-39) Units/L ALT 15 (7-52) Units/L Alkaline Phosphatase 55 (34-104) Units/L Albumin 3.0 L (3.5-5.7) g/dL Consult Discharge Plan - Plan Referrals: Staci Mcdermott MD [Primary Care Provider] - 1 week
[2018-07-21] MEDS: MOMETASONE FUROATE 100 mcg Inhaler IH SCH ×2 (10:35→22:38)
[2018-07-21] MEDS ORDERED: Ondansetron ODT 4 MG TAB.RAPDIS SL PRN (13:56)
[2018-07-21] MEDS: *HR* OxyCODONE/APAP 5/325 TABLET PO PRN (14:25)
[2018-07-22] MEDS: Ascorbic Acid 500 MG TABLET PO SCH (06:48)
[2018-07-22 07:00] LABS: Basophils % 0.5 %; Eosinophils % 1.1 %; Hematocrit 35.9 % (37.5-50.1); Hemoglobin 11.9 g/dL (12.9-16.9); Lymphocytes # 0.6 K/mcL (0.6-4.6); Lymphocytes % 16.1 %; Mean Corpuscular HGB Conc 33.1 g/dL (31.6-35.5); Mean Corpuscular Hemoglobin 31.6 pg (28.0-33.3); Mean Corpuscular Volume 95.2 fL (83.0-100.0); Mean Platelet Volume 9.8 fL (9.4-12.4); Monocytes # 0.6 K/mcL (0.0-1.3); Monocytes % 17.4 %; Neutrophils # 2.4 K/mcL (1.6-8.9); Platelet Count 274 K/mcL (140-400); Red Blood Count 3.77 M/mcL (4.19-5.50); Red Cell Distribution Width 14.1 % (11.5-14.5); Segmented Neutrophils % 64.9 %
[2018-07-22] MEDS: Cholecalciferol (D-3) 1,000 UNIT TABLET PO SCH (08:35)
[2018-07-22] MEDS: Gabapentin 300 MG CAPSULE PO SCH ×3 (08:36→21:25)
[2018-07-22] MEDS: *HR* LORazepam 1 MG TABLET PO SCH (08:36)
[2018-07-22] MEDS: MOMETASONE FUROATE 100 mcg Inhaler IH SCH ×2 (10:56→22:52)
--- NOTE | 2018-07-22 12:32 | Internal Med Progress Note ---
Date of Encounter: 07/22/18 Time of Encounter: 12:25 - Assessment and plan (1) UTI (urinary tract infection) Current Visit: Yes Status: Acute Assessment and plan: July 17. Urine culture shows mixed organisms. Discontinue Rocephin and lactobacillus. Qualifiers: Urinary tract infection type: site unspecified Hematuria presence: with hematuria Qualified Code(s): N39.0 - Urinary tract infection, site not specified; R31.9 - Hematuria, unspecified (2) Hypokalemia Current Visit: Yes Status: Acute Assessment and plan: July 17. Potassium normalized to 3.6. Continue potassium supplement and monitor labs. July 18. Potassium now 4.0. Decrease supplemental potassium to 20 mEq daily. July 19. Recheck labs in a.m. July 20. Recheck labs in a.m. July 21. Potassium normal at 3.9. Continue present Rx (3) Hypocalcemia Current Visit: Yes Status: Acute Assessment and plan: July 17. Calcium level corrected for albumin is 9.2. PTH normal. Continue to monitor. July 21. Calcium remains normal. Continue Rx (4) COPD (chronic obstructive pulmonary disease) Current Visit: Yes Status: Chronic Assessment and plan: July 17. Continue present treatment. Room air oximetry will be checked prior to discharge. July 22. Check room air oximetry. 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 Continue Xarelto indefinitely Qualifiers: Chronicity: unspecified Laterality: bilateral Qualified Code(s): I82.413 - Acute embolism and thrombosis of femoral vein, bilateral (6) Anemia Current Visit: No Status: Acute Assessment and plan: July 17. Anemia testing showed iron 16, transferrin saturation 7%, transferrin 172, ferritin 94, B12 687, and folate > 22.3. Hemoglobin has improved to 12.2. Continue ferrous sulfate with ascorbic acid. July 19. Recheck labs in a.m. July 20. Recheck labs in a.m. July 21. Hemoglobin improved to 12.5. Continue ferrous sulfate with ascorbic acid. July 22. Hemoglobin slightly decreased at 11.9. Continue to monitor. Qualifiers: Anemia type: unspecified type Qualified Code(s): D64.9 - Anemia, unspecified (7) Weakness Current Visit: Yes Status: Acute Assessment and plan: July 17. PT and OT evaluations will be ordered. July 18. Continue therapy intervention. Anticipate discharge to SNF where his daughter is DON as soon as Medicaid approval received. July 21. Continue PT/OT. Awaiting Medicaid approval to go to SNF. - Subjective Interval history: July 17. He has no new complaints. His granddaughter states he was ambulating with a walker 2-3 days prior to admission. Within 48 hours he was too weak to ambulate and had falls that led to emergency room visit and hospitalization. Patient states he still feels too week to get out of bed. July 18. He has no new complaints and feels stronger. He states he took several steps with therapist earlier today. July 19. He has no new complaints. July 20. He has no new complaints. He states he walked 48 feet today. July 21. He has no new complaints. July 22. He has no new complaints. He reports staff noted slight amount of blood when wiping rectal area earlier. - Constitutional Vitals: Temp Pulse Resp BP Pulse Ox 97.9 F 95 16 97/64 97 07/22/18 06:46 07/22/18 08:34 07/22/18 06:46 07/22/18 08:34 07/22/18 08:34 Exam: He is resting comfortably in bed and appears in no acute distress. His affect is bright and cheerful. I reviewed his medications and lab results. Internal Medicine: Result - Labs CBC & Chem 7: 07/22/18 06:08 07/21/18 04:57 Labs: Short CBC 07/22/18 Range/Units 06:08 WBC 3.7 L (4.3-11.1) K/mcL Hgb 11.9 L (12.9-16.9) g/dL Hct 35.9 L (37.5-50.1) % Plt Count 274 (140-400) K/mcL Neutrophils # 2.4 (1.6-8.9) K/mcL - Impressions Impressions Foot X-Ray 07/21/18 13:56 IMPRESSION: 1. No acute osseous abnormality in the left foot. 2. Curvilinear density projects over the soft tissues of the heel. This is indeterminate, but could represent retained foreign body. Clinical correlation recommended. D/ / Isaac Bennett MD / Isaac Bennett MD Interpreting Provider: Isaac Bennett MD Consult Discharge Plan - Plan Referrals: Staci Mcdermott MD [Primary Care Provider] - 1 week
[2018-07-22 15:48] LABS: Bilirubin,Urine Negative (Negative); Blood,Urine Trace-intact (Negative); Clarity,Urine Cloudy (Clear); Color,Urine Yellow (Yellow); Glucose,Urine (UA) Normal (Normal); Ketones,Urine Negative (Negative); Leukocyte Esterase,Urine Moderate (Negative); Nitrite,Urine Positive (Negative); PH,Urine 6.5 pH Units (5.0-8.0); Protein,Urine 30 mg/dL (Neg-Trace); Urobilinogen,Urine Normal (Normal)
[2018-07-22 15:54] LABS: Trichomonas,Urine Present (None Seen)
[2018-07-22 15:57] LABS: RBC,Urine 0-3 per hpf (0-3); Squamous Epithelial Cell,Urine Few per lpf (None-Few); WBC,Urine 50-100 per hpf (0-3); Yeast,Urine Many per hpf (None Seen)
[2018-07-22 16:01] LABS: Bacteria,Urine Many per hpf (None-Few)
[2018-07-22] MEDS: cefTRIAXone 1,000 MG in Water for inj. (sterile) 20 ML 10 ML IVP SCH (18:23)
[2018-07-22] MEDS: Lactobacillus 1 EACH CAP.SPRINK PO SCH (21:25)
[2018-07-23] MEDS: Ascorbic Acid 500 MG TABLET PO SCH (05:40)
[2018-07-23] MEDS: MOMETASONE FUROATE 100 mcg Inhaler IH SCH ×2 (09:34→21:58)
[2018-07-23] MEDS: Cholecalciferol (D-3) 1,000 UNIT TABLET PO SCH (10:03)
[2018-07-23] MEDS: Gabapentin 300 MG CAPSULE PO SCH ×3 (10:03→19:44)
[2018-07-23] MEDS: *HR* LORazepam 1 MG TABLET PO SCH (10:03)
[2018-07-23] MEDS: Lactobacillus 1 EACH CAP.SPRINK PO SCH ×2 (10:03→19:44)
[2018-07-23] MEDS: *HR* HYDROcodone/Acet 5/325 mg TABLET PO PRN (15:37)
--- NOTE | 2018-07-23 19:13 | Internal Med Progress Note ---
Date of Encounter: 07/23/18 Time of Encounter: 19:06 - Assessment and plan (1) UTI (urinary tract infection) Current Visit: Yes Status: Acute Assessment and plan: July 17. Urine culture shows mixed organisms. Discontinue Rocephin and lactobacillus. July 23. Urine culture was resubmitted. Qualifiers: Urinary tract infection type: site unspecified Hematuria presence: with hematuria Qualified Code(s): N39.0 - Urinary tract infection, site not specified; R31.9 - Hematuria, unspecified (2) Hypokalemia Current Visit: Yes Status: Acute Assessment and plan: July 17. Potassium normalized to 3.6. Continue potassium supplement and monitor labs. July 18. Potassium now 4.0. Decrease supplemental potassium to 20 mEq daily. July 19. Recheck labs in a.m. July 20. Recheck labs in a.m. July 21. Potassium normal at 3.9. Continue present Rx (3) Hypocalcemia Current Visit: Yes Status: Acute Assessment and plan: July 17. Calcium level corrected for albumin is 9.2. PTH normal. Continue to monitor. July 21. Calcium remains normal. Continue Rx (4) COPD (chronic obstructive pulmonary disease) Current Visit: Yes Status: Chronic Assessment and plan: July 17. Continue present treatment. Room air oximetry will be checked prior to discharge. July 22. Check room air oximetry. July 23. Room air oximetry yesterday showed saturation 96% while at rest. 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 Continue Xarelto indefinitely Qualifiers: Chronicity: unspecified Laterality: bilateral Qualified Code(s): I82.413 - Acute embolism and thrombosis of femoral vein, bilateral (6) Anemia Current Visit: No Status: Acute Assessment and plan: July 17. Anemia testing showed iron 16, transferrin saturation 7%, transferrin 172, ferritin 94, B12 687, and folate > 22.3. Hemoglobin has improved to 12.2. Continue ferrous sulfate with ascorbic acid. July 19. Recheck labs in a.m. July 20. Recheck labs in a.m. July 21. Hemoglobin improved to 12.5. Continue ferrous sulfate with ascorbic acid. July 22. Hemoglobin slightly decreased at 11.9. Continue to monitor. Qualifiers: Anemia type: unspecified type Qualified Code(s): D64.9 - Anemia, unspecifie d (7) Weakness Current Visit: Yes Status: Acute Assessment and plan: July 17. PT and OT evaluations will be ordered. July 18. Continue therapy intervention. Anticipate discharge to SNF where his daughter is DON as soon as Medicaid approval received. July 21. Continue PT/OT. Awaiting Medicaid approval to go to SNF. - Subjective Interval history: July 17. He has no new complaints. His granddaughter states he was ambulating with a walker 2-3 days prior to admission. Within 48 hours he was too weak to ambulate and had falls that led to emergency room visit and hospitalization. Patient states he still feels too week to get out of bed. July 18. He has no new complaints and feels stronger. He states he took several steps with therapist earlier today. July 19. He has no new complaints. July 20. He has no new complaints. He states he walked 48 feet today. July 21. He has no new complaints. July 22. He has no new complaints. He reports staff noted slight amount of blood when wiping rectal area earlier. July 23. He has no new complaints. He states he felt nauseated earlier today but has not vomited. He states his legs are still weak and have pain. He denies pain elsewhere. - Constitutional Vitals: Temp Pulse Resp BP Pulse Ox 97.4 F L 97 16 107/69 94 07/23/18 18:43 07/23/18 18:43 07/23/18 18:43 07/23/18 18:43 07/23/18 18:43 Exam: He is resting comfortably in bed and appears in no acute distress. His affect is overall cheerful. I reviewed his medications and lab results. Internal Medicine: Result - Labs CBC & Chem 7: 07/22/18 06:08 07/21/18 04:57 Consult Discharge Plan - Plan Referrals: Staci Mcdermott MD [Primary Care Provider] - 1 week
[2018-07-23] MEDS: *HR* Rivaroxaban 15 MG TABLET PO SCH (19:44)
[2018-07-23] MEDS: cefTRIAXone 1,000 MG in Water for inj. (sterile) 20 ML 10 ML IVP SCH (19:44)
[2018-07-23] MEDS: *HR* OxyCODONE/APAP 5/325 TABLET PO PRN (19:44)
[2018-07-24] MEDS: Ascorbic Acid 500 MG TABLET PO SCH (05:24)
[2018-07-24] MEDS: MOMETASONE FUROATE 100 mcg Inhaler IH SCH ×2 (09:03→21:44)
[2018-07-24] MEDS: Cholecalciferol (D-3) 1,000 UNIT TABLET PO SCH (09:24)
[2018-07-24] MEDS: Lactobacillus 1 EACH CAP.SPRINK PO SCH ×2 (09:24→20:23)
[2018-07-24] MEDS: *HR* LORazepam 1 MG TABLET PO SCH (09:24)
[2018-07-24] MEDS: Gabapentin 300 MG CAPSULE PO SCH ×3 (09:24→20:23)
[2018-07-24] MEDS: *HR* OxyCODONE/APAP 5/325 TABLET PO PRN (15:52)
--- NOTE | 2018-07-24 17:09 | Internal Med Progress Note ---
Date of Encounter: 07/24/18 Time of Encounter: 17:00 - Assessment and plan (1) UTI (urinary tract infection) Current Visit: Yes Status: Acute Assessment and plan: July 17. Urine culture shows mixed organisms. Discontinue Rocephin and lactobacillus. July 23. Urine culture was resubmitted. July 24. Urine culture showed mixed organisms. He remains afebrile. Recheck labs in a.m. Anticipate discontinuation of antibiotics tomorrow. Qualifiers: Urinary tract infection type: site unspecified Hematuria presence: with hematuria Qualified Code(s): N39.0 - Urinary tract infection, site not specified; R31.9 - Hematuria, unspecified (2) Hypokalemia Current Visit: Yes Status: Acute Assessment and plan: July 17. Potassium normalized to 3.6. Continue potassium supplement and monitor labs. July 18. Potassium now 4.0. Decrease supplemental potassium to 20 mEq daily. July 19. Recheck labs in a.m. July 20. Recheck labs in a.m. July 21. Potassium normal at 3.9. Continue present Rx July 24. Recheck labs in a.m. (3) Hypocalcemia Current Visit: Yes Status: Acute Assessment and plan: July 17. Calcium level corrected for albumin is 9.2. PTH normal. Continue to monitor. July 21. Calcium remains normal. Continue Rx July 24. Recheck labs in a.m. (4) COPD (chronic obstructive pulmonary disease) Current Visit: Yes Status: Chronic Assessment and plan: July 17. Continue present treatment. Room air oximetry will be checked prior to discharge. July 22. Check room air oximetry. July 23. Room air oximetry yesterday showed saturation 96% while at rest. 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 Continue Xarelto indefinitely Qualifiers: Chronicity: unspecified Laterality: bilateral Qualified Code(s): I82.413 - Acute embolism and thrombosis of femoral vein, bilateral (6) Anemia Current Visit: No Status: Acute Assessment and plan: July 17. Anemia testing showed iron 16, transferrin saturation 7%, transferrin 172, ferritin 94, B12 687, and folate > 22.3. Hemoglobin has improved to 12.2. Continue ferrous sulfate with ascorbic acid. July 19. Recheck labs in a.m. July 20. Recheck labs in a.m. July 21. Hemoglobin improved to 12.5. Continue ferrous sulfate with ascorbic acid. July 22. Hemoglobin slightly decreased at 11.9. Continue to monitor. July 24. Recheck labs in a.m. Qualifiers: Anemia type: unspecified type Qualified Code(s): D64.9 - Anemia, unspecified (7) Weakness Current Visit: Yes Status: Acute Assessment and plan: July 17. PT and OT evaluations will be ordered. July 18. Continue therapy intervention. Anticipate discharge to SNF where his daughter is DON as soon as Medicaid approval received. July 21. Continue PT/OT. Awaiting Medicaid approval to go to SNF. - Subjective Interval history: July 17. He has no new complaints. His granddaughter states he was ambulating with a walker 2-3 days prior to admission. Within 48 hours he was too weak to ambulate and had falls that led to emergency room visit and hospitalization. Patient states he still feels too week to get out of bed. July 18. He has no new complaints and feels stronger. He states he took several steps with therapist earlier today. July 19. He has no new complaints. July 20. He has no new complaints. He states he walked 48 feet today. July 21. He has no new complaints. July 22. He has no new complaints. He reports staff noted slight amount of blood when wiping rectal area earlier. July 23. He has no new complaints. He states he felt nauseated earlier today but has not vomited. He states his legs are still weak and have pain. He denies pain elsewhere. July 24. He has no new complaints. - Constitutional Vitals: Temp Pulse Resp BP Pulse Ox 97.9 F 88 18 104/66 93 07/24/18 06:42 07/24/18 06:42 07/24/18 09:04 07/24/18 06:42 07/24/18 09:04 Exam: He is resting comfortably on the side of bed and appears in no acute distress. His affect is bright and cheerful. I reviewed his medications and lab results. Internal Medicine: Result - Labs CBC & Chem 7: 07/22/18 06:08 07/21/18 04:57 Consult Discharge Plan - Plan Referrals: Staci Mcdermott MD [Primary Care Provider] - 1 week
[2018-07-24] MEDS: *HR* Rivaroxaban 15 MG TABLET PO SCH (17:19)
[2018-07-24] MEDS: cefTRIAXone 1,000 MG in Water for inj. (sterile) 20 ML 10 ML IVP SCH (17:20)
[2018-07-25 05:28] LABS: Basophils % 0.3 %; Eosinophils # 0.1 K/mcL (0.0-0.6); Eosinophils % 0.9 %; Hematocrit 35.6 % (37.5-50.1); Hemoglobin 11.9 g/dL (12.9-16.9); Immature Granulocytes % 0.2 % (0-4); Lymphocytes # 0.8 K/mcL (0.6-4.6); Lymphocytes % 12.8 %; Mean Corpuscular HGB Conc 33.4 g/dL (31.6-35.5); Mean Corpuscular Hemoglobin 31.3 pg (28.0-33.3); Mean Corpuscular Volume 93.7 fL (83.0-100.0); Mean Platelet Volume 9.4 fL (9.4-12.4); Monocytes # 0.6 K/mcL (0.0-1.3); Monocytes % 10.1 %; Platelet Count 302 K/mcL (140-400); Segmented Neutrophils % 75.7 %
[2018-07-25] MEDS: *HR* OxyCODONE/APAP 5/325 TABLET PO PRN (05:29)
[2018-07-25] MEDS: Ascorbic Acid 500 MG TABLET PO SCH (05:29)
[2018-07-25 05:34] LABS: Neutrophils # 4.5 K/mcL (1.6-8.9)
[2018-07-25 05:54] LABS: BUN/Creatinine Ratio 16 (6-26); Blood Urea Nitrogen 10 mg/dL (6-20); Calcium 8.8 mg/dL (8.6-10.3); Carbon Dioxide 28 mEq/L (23-29); Chloride 97 mEq/L (98-107); Glucose 112 mg/dL (70-105); Osmolality,Calculated 274 (280-300); Potassium 3.6 mEq/L (3.5-5.1); Sodium 132 mEq/L (136-145); eGFR For Non-African Americans > 60 (> 60)
[2018-07-25 07:42] VITALS: BP 106/69
[2018-07-25] MEDS: *HR* LORazepam 1 MG TABLET PO SCH (09:06)
[2018-07-25] MEDS: Gabapentin 300 MG CAPSULE PO SCH (09:06)
[2018-07-25] MEDS: Lactobacillus 1 EACH CAP.SPRINK PO SCH (09:06)
[2018-07-25] MEDS: Cholecalciferol (D-3) 1,000 UNIT TABLET PO SCH (09:06)
[2018-07-25] MEDS: MOMETASONE FUROATE 100 mcg Inhaler IH SCH (09:24)
--- NOTE | 2018-07-25 12:39 | Discharge Summary ---
Date of Encounter: 07/25/18 Time of Encounter: 12:28 - Discharge Diagnosis (1) UTI (urinary tract infection) Priority: Primary Status: Resolved Qualifiers: Urinary tract infection type: site unspecified Hematuria presence: with hematuria Qualified Code(s): N39.0 - Urinary tract infection, site not specified; R31.9 - Hematuria, unspecified (2) Hypokalemia Priority: Secondary Status: Acute (3) Hypocalcemia Priority: Secondary Status: Resolved (4) COPD (chronic obstructive pulmonary disease) Priority: Secondary Status: Chronic Qualifiers: COPD type: unspecified COPD Qualified Code(s): J44.9 - Chronic obstructive pulmonary disease, unspecified (5) Dvt femoral (deep venous thrombosis) Priority: Secondary Status: Chronic Qualifiers: Chronicity: unspecified Laterality: bilateral Qualified Code(s): I82.413 - Acute embolism and thrombosis of femoral vein, bilateral (6) Anemia Priority: Secondary Status: Acute Qualifiers: Anemia type: unspecified type Qualified Code(s): D64.9 - Anemia, unspecified (7) Weakness Priority: Secondary Status: Acute Hospital course: Mr. Du is a 58 year old male who came to emergency room stating he had 3-4 week history of progressive weakness in his arms and legs. He reports falling without injury at home on 2 occasions last week. He was evaluated in emergency room and was found to have UTI. He was admitted to [facility] for ongoing care needs. Initial orders were written by the emergency room physician. I saw him on July 16 and performed a history and physical. He was started empirically on Rocephin IV for possible UTI. Urine culture showed mixed organisms. A repeat urine culture was submitted several days later and also showed mixed organisms. He will not continue with antibiotics at discharge. Supplemental potassium was given and hypokalemia resolved. Follow-up lab work showed normalization of hypocalcemia. PTH returned normal at 24.5. Room air oximetry at rest showed saturation 96%. Anemia testing showed iron 16, transferrin saturation 7%, transferrin 172, ferritin 94, B12 687, and folate> 22.3. Ferrous sulfate with ascorbic acid was given and will be continued at discharge. PT and OT evaluation ongoing intervention was done. The patient made satisfactory progress but it was felt he would benefit from ongoing therapy. Word was received July 25 from Medicaid that he could be discharged to [facility] for ongoing care needs. - Time Spent with Patient Total time spent providing and/or coordinating discharge services: - Discharge Medications Prescriptions: New Ascorbic Acid [Vitamin C] 500 mg PO 0630 tablet OxyCODONE/APAP 5/325 [Percocet 5/325 MG] 1 each PO Q6H PRN 7 Days #28 tablet PRN Reason: Pain Potassium Chloride 20 meq PO DAILY tab.er.prt Continue Pravastatin Sodium [Pravachol] 20 mg PO HS Ferrous Sulfate [Iron] 325 mg PO BID Clopidogrel [Plavix] 75 mg PO DAILY Rivaroxaban [Xarelto] 15 mg PO DAILY #90 tablet Gabapentin [Neurontin] 300 mg PO TID #90 capsule Cholecalciferol (Vitamin D3) [Vitamin D3] 1,000 unit PO DAILY #30 capsule Tamsulosin [Flomax] 0.4 mg PO BID Oxycodone HCl/Acetaminophen [Percocet 5-325 mg Tablet] 1 each PO Q6H PRN 30 Days #120 tablet PRN Reason: Pain Citalopram [CeleXA] 20 mg PO HS Cyanocobalamin (B-12) [Vitamin B12] 1,000 mcg PO DAILY LORazepam [Ativan] 1 mg PO DAILY Loperamide [Imodium] 2 cap PO AD #60 capsule Fluticasone Propionate [Flovent Diskus] 2 puff IH BID Discontinued Folic Acid 1 mg PO DAILY #90 tablet Home Medications: Pravastatin Sodium [Pravachol] 20 mg PO HS 11/27/14 [History] Fluticasone Propionate [Flovent Diskus] 2 puff IH BID 08/09/15 [History] Ferrous Sulfate [Iron] 325 mg PO BID 08/22/16 [History] Clopidogrel [Plavix] 75 mg PO DAILY 02/21/17 [History] Rivaroxaban [Xarelto] 15 mg PO DAILY #90 tablet 08/31/17 [Rx] Gabapentin [Neurontin] 300 mg PO TID #90 capsule 11/07/17 [Rx] Cholecalciferol (Vitamin D3) [Vitamin D3] 1,000 unit PO DAILY #30 capsule 11/23/17 [Rx] Tamsulosin [Flomax] 0.4 mg PO BID 12/04/17 [History] Oxycodone HCl/Acetaminophen [Percocet 5-325 mg Tablet] 1 each PO Q6H PRN 30 Days #120 tablet 01/23/18 [Rx] Citalopram [CeleXA] 20 mg PO HS 06/06/18 [History] Cyanocobalamin (B-12) [Vitamin B12] 1,000 mcg PO DAILY 06/25/18 [History] LORazepam [Ativan] 1 mg PO DAILY 06/25/18 [History] Loperamide [Imodium] 2 cap PO AD #60 capsule 07/13/18 [Rx] Ascorbic Acid [Vitamin C] 500 mg PO 0630 tablet 07/25/18 [Rx] OxyCODONE/APAP 5/325 [Percocet 5/325 MG] 1 each PO Q6H PRN 7 Days #28 tablet 07/25/18 [Rx] Potassium Chloride 20 meq PO DAILY tab.er.prt 07/25/18 [Rx] Allergies/Adverse Reactions: Allergy/AdvReac Type Severity Reaction Status Date / Time No Known Allergies Allergy Verified 06/25/18 12:57 Date of admission: 07/15/18 16:55 Primary care physician: Staci Mcdermott Consults: 07/15/18 18:36 Consult to Nutrition [CONS] Routine Comment: Consulting Provider: NUTRITION Reason for Dietary Consult: PO Supplementation Consult to [employer] [CONS] Routine Reason for SW Consult: Home health possibly needed after discharge 07/17/18 11:36 Consult to Occupational Therapy [CONS] Routine Comment: Evaluate, develop and implement POC Reason for Consult: Weakness Does patient have active BEDREST order?: No Is patient medically & hemodynamically stable?: Yes Patient assessed for mobility or mobilized this visit?: Yes Consult to Physical Therapy [CONS] Routine Comment: Evaluate, develop and implement POC Reason for Consult: Weakness Does patient have active BEDREST order?: No Is patient medically & hemodynamically stable?: Yes Patient assessed for mobility or mobilized this visit?: Yes - Constitutional Vitals: Temp Pulse Resp BP Pulse Ox 97.8 F 18 18 106/69 94 07/25/18 07:41 07/25/18 07:41 07/25/18 09:24 07/25/18 07:41 07/25/18 09:24 - Patient Status Disposition: Transfer SNF Condition: Fair - Discharge Instructions - Diet and Activity Activity: as per physical therapy Diet: regular diet
== END 2018-07-25 15:30 ==
LOC: EMEROOPIK 14:49 → INPPIK 14:49
PROVIDERS: ADMIT Internal Medicine; ATTEND Internal Medicine